=== PATIENT | female | born 1965 | race African-American/Black ===

== ENCOUNTER 2021-02-16 14:05 | Emergency (ER) | payer MEDICAID ==
[~2021-02-16] VITALS: Ht 170.2 cm; Wt 128.6 kg
[2021-02-16 14:08] VITALS: BP 178/95
[2021-02-16] MEDS ORDERED: IBUPROFEN 400MG TABLET PO ONE (14:30)
[2021-02-16] MEDS ORDERED: LIDOCAINE HCL/PF 1% 10 MG/ML 5ML VIAL IJ ONE (14:30)
[2021-02-16] MEDS ORDERED: BACITRACIN ZINC OINT UDPKT TOP ONE (14:30)
[2021-02-16] MEDS ORDERED: ACETAMINOPHEN 325MG TABLET PO ONE (14:30)
[2021-02-16] MEDS ORDERED: SULF-292 MT (15:18)
[2021-02-16] MEDS ORDERED: CEPH500C2 MT (15:18)
== END 2021-02-16 15:00 | disposition home or self-care (01) ==
LOC: ER 14:05
DX: L02.411 Cutaneous abscess of right axilla (principal); I10 Essential (primary) hypertension
CPT/HCPCS: 10060; 87070; 87077; 87186; 87205; 99283; J3490; Z7610